=== PATIENT | male | born 1995 | race Caucasian/White ===

== ENCOUNTER 2021-05-17 11:47 | Emergency (ER) | payer OTHER ==
[~2021-05-17 11:47] MED LIST: TAMIFLU 75MG CA75 MG PO
[2021-05-17 13:13] LABS: BASOPHIL 0.7 % (0-2); EOSINOPHIL 0.2 % (0-5); HCT 51.9 % (42.0-52.0); HGB 16.9 g/dl (13.2-18.0); LYMPHOCYTE 14.8 % (15-48); MCH 28.1 pg (25.0-31.0); MCHC 32.6 g/dL (32.0-36.0); MCV 86.2 fL (78.0-100.0); MONOCYTE 15.8 % (0-12); MPV 10.1 fL (6.0-9.5); NEUTROPHIL 68.1 % (41-80); NRBC 0; PLT 165 K/uL (150-400); RBC 6.02 M/uL (4.70-6.00); WBC 11.8 K/uL (4.0-10.5)
[2021-05-17 13:24] LABS: BILIRUBIN 1+ mg/dL (NEGATIVE); BLOOD 2+ Ery/uL (NEGATIVE); CLARITY CLEAR (CLEAR); COLOR YELLOW (YELLOW); GLUCOSE (U) NORMAL (NORMAL); LEUKOCYTES NEGATIVE Leu/uL (NEGATIVE); NITRITE POSITIVE (NEGATIVE); PROTEIN 2+ mg/dL (NEGATIVE)
[2021-05-17 13:26] LABS: ALBUMIN 4.4 g/dL (3.4-5.0); BILIRUBIN - TOTAL 2.8 mg/dL (0.2-1.0); BUN/CREAT RATIO (CALC) 7.8 RATIO; CREATININE 1.28 mg/dL (0.67-1.17); GLOBULIN (CALCULATION) 4.1 g/dL; MAGNESIUM 1.8 mg/dL (1.8-2.4); POTASSIUM 3.3 mmol/L (3.5-5.1); TOTAL PROTEIN 8.5 g/dL (6.4-8.2)
[2021-05-17 13:39] LABS: BACTERIA 1+
[2021-05-17 13:42] LABS: INR 1.2 (0.9-1.2); PROTHROMBIN TIME 14.6 SECONDS (11.8-13.4)
[2021-05-17 13:43] LABS: PTT 35.5 SECONDS (24.4-34.7)
[2021-05-17] MEDS ORDERED: DOXYCYCLINE HY100 MG PO (14:37)
[2021-05-17] MEDS ORDERED: NAPROXEN500 MG PO (14:37)
[2021-05-17] MEDS ORDERED: ZOFRAN4 M1 PO (14:39)
== END 2021-05-17 14:55 | disposition home or self-care (01) ==
LOC: FER 11:47
PROVIDERS: Emergency Medicine
DX: N39.0 Urinary tract infection, site not specified (principal); R51.9 Headache, unspecified; Z20.822 Contact with and (suspected) exposure to COVID-19
CPT/HCPCS: 36415; 71046; 80053; 81001; 83690; 83735; 83880; 84145; 85025; 85610; 85730; 93005; J0696; J1885; J2405; J2930; J7030; U0002